=== PATIENT | female | born 1995 | race Caucasian/White ===

== ENCOUNTER 2025-01-14 10:59 | Outpatient (CLI) | payer OTHER, SELFPAY ==
--- OUTSIDE RECORDS SUMMARY | 2025-01-14 12:48 | XMS_ITS | Continuity of Care Document ---
Author Organization [facility] Address [address] [place] [address] Phone Care Team Providers Care Assistant Hairstylist Name Role Phone Angelica Armenta Unavailable Unavailable Allergies, Adverse Reactions, Alerts Substance Reaction Status Criticality No Known Allergies Active No Inform ation Medications Medication Instructions Dosage Effective Dates (start - stop) Status Comments dexamethasone sodium phosphate 10 mg/mL injection solution Administered in the office - No Longer Active Kenalog 40 mg/mL suspension for injection Administered in the office - No Longer Active Procedures Procedure Date Decadron Dexamethasone sodium phos Per 1 Mg Inj Kenalog Triamcinolone acetonide Inj Per 10mg THER/PROPH/DIAG INJ, SC/IM OFFICE/OUTPATIENT VISIT, EST OFFICE/OUTPATIENT VISIT, NEW IMMUNIZATION ADMIN HEP B VACCINE, ADULT, IM OFFICE/OUTPATIENT VISIT, EST IMMUNIZATION ADMIN HEP B VACCINE, ADULT, IM No Charge Advance Directives Directive Yes / No Effective Date File Name No Information Encounters Encounter Description Practice Location Reason(s) For Visit Diagnoses Date Provider Providers Copied on Encounter [facility], [address], [place], [place], [id number], [place] tel:[phone] [facility] No Information Solo Dominguez. [address], [address], [place], [address], [place]. tel:[phone] OFFICE/OUTPAT IENT VISIT, EST [facility], [address] [place] [address], [id number], [place] tel:[phone] [facility] Eyes (chief complaint) Allergic rhinitis 3 Solo Dominguez. [address] [facility] [address], [place], [address], [place]. tel:[phone] Referring Provider: Angelica Gamboa, [address], [place], [address]. tel:[phone] OFFICE/OUTPAT IENT VISIT, NEW [facility], [address] [place] [address], [id number], [place] tel:[phone] [facility] ear pain (chief complaint) AOM of left ear 2 Cecy Pereyra. [address] [place] [address], [id number], [place]. tel:[phone] Referring Provider: Hafsa Gamboa, [address] [place] [address], [address]. tel:[phone] OFFICE/OUTPAT IENT VISIT, EST [facility], [address] [place] [address], [id number], [place] tel:[phone] [facility] No Information 2 Coir Byrd. [address] [place] [address], [id number], [place]. tel:[phone] Referring Provider: Carson Escobar, [address] [place] [address], [id number] . tel:[phone] [facility], [address] [place] [address], [id number], [place] tel:[phone] [facility] No Information 1 Cori Byrd. [address] [place] [address], [id number], [place]. tel:[phone] Referring Provider: Carson Escobar, [address] [place], [address] . tel:[phone] Family History Family Member Type Diagnosis Age At Onset No Information Immunizations Vaccine Date Status Comments Hep B (adult, 3 dose) administered Source : New Immunization Record Hep B (adult, 3 dose) administered Source : New Immunization Record Hep B (adult, 3 dose) administered Source : Other Provider Payers Payer name Insurance type Covered green party ID Authoriza tion(s) [facility] [id number] [facility] [id number] Social History Type Description Quantity Date Captured Comments Alcohol Use Details Unknown Caffeine Use Details Unknown Tobacco Use Status No Information Smoking Status No Information Sex Female Chief Complaint And Reason For Visit No Information Reason For Referral Reason For Referral No Information History Of Present Illness Encounter Date Complaint History Of Prese nt Illness Eyes The symptoms beg an 2 weeks ago and generally lasts 2 Weeks. The symptoms are reported as being moderate. The location is Eyes Bilateral. The client states the symptoms are acute. Pt presents to the office with complaint of itchy eyes. 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 The pt states that she takes a Zrtec pill daily. ear pain Onset: on 2021. The patient states the ear pain is in the left ear. Symptom is aggravated by lying down and sneezing. Associated symptoms include dizziness, drainage (clear), ear popping, ear pressure and fullness in ears. Pertinent negatives include bleeding from ear(s), congestion (nasal), cough, decreased appetite, drainage (purulent), fever, hearing deficit, irritability, loss of balance, malaise, mastoid bone tenderness, nausea, redness/swelling outer ear, ringing in ears, tooth pain and vomiting. Additional information: Pt presents today for left ear pain, clear ear drainage and and pressure since 2AM. She reports for a week she has had dizziness with exercise. Functional Status Date Functional Assessmen t No Information Instructions Date Instruction Additional Infor mation Allergic contact amrit matitis-decadron 10mg/kenalog 40mg given in clinic-Chlortab 4 hours as needed for allergy symptoms-Zyrtec or claritin daily-contact or rtc if symptoms do not improve Related to Allergic rhinitis 1. Amoxicillin 875mg BID X 10 days2. Tylenol or Motrin for pain if needed3. Clear fluids encouragedRTC as needed if symptoms persist or worsen Related to AOM of left ear Assessments Type Assessment Date No Information Patient Care Teams Name Effective Dates (start - stop) Status Members No Information
--- OUTSIDE RECORDS SUMMARY | 2025-01-14 12:48 | XMS_ITS | Encounter Summary ---
Author Organization [facility] Address [address] [place] [address] Care Team Providers Care Technical Publications Manager Name Role Phone Jamey العراقي MD Primary Care Provider [phone] Familia Eaton MD Unavailable Reason for Visit * Reason Onset Date Comments MEDICATION REFILL 09/18/2015 Encounter Details Date Type Department Care Team (Late st Contact Info) Description 09/18/2015 Refill [facility] Pediatrics - Diabetes Mgmt [address] [place] [address] [id number] Raul Polanco APRN-MUCKER OPERATOR [address] [place] [address] MEDICATION REFILL Social History Tobacco Use Types Packs/Day Years Used Date Smoking Tobacco: Never Alcohol Use Standard Drinks/Week Comments No 0 (1 standard drink = 0.6 oz pur e alcohol) Sex and Gender Information Value Date Recorded Sex Assigned at Not on file Gender Identity Not on file Sexual Orientation Not on file documented as of this encounter Plan of Treatment Not on file documented as of this encounter Visit Diagnoses Diagnosis Type 1 diabetes mellitus without complication (HCC)- Primary Type I (juvenile type) diabetes mellitus without mention of complication, not stated as uncontrolled documented in this encounter Care Teams Technical Publications Manager Relationship Specialty Start Date End Date Jamey العراقي MD [address] [place] [address] [id number] PCP - General Pediatric Endocrinology 11/27/12 Familia Eaton MD [address] [place], [place] [id number] Family Medicine Physician Family Medicine 12/03/13 documented as of this encounter
--- OUTSIDE RECORDS SUMMARY | 2025-01-14 12:48 | XMS_ITS | Clinical Summary ---
Author Organization [facility] Address [address] [place] [address] Care Team Providers Care Patient Services Technician Name Role Phone Jamey العراقي MD Primary Care Provider [phone] Familia Eaton MD Unavailable Source Comments [facility],non-owned Affiliates and Associated Physician Practices is amultiple site organization consisting of ambulatory clinics and hospital sitesin [place], [place], [place] and [place]. This disclosure is being madepursuant to the Care Everywhere program and may not contain all information available regarding this patient. Last updated 18.[facility] Allergies No known active allergies Medications * Be aware that medications may not be up to date on this document. Alwaysverify current medications with the patient. Medication Sig Dispensed Refills Start Date End Date Status acetone,urine, (KETOSTIX) stripIndications:Di abetes mellitus type 1 (HCC) 100 Strip 11 11/27/2012 Active insulin lispro (HUMALOG) cartridgeIndication s:Diabetes mellitus type 1 (HCC) 1 unit per 5 grams carbohydrate 5 Each 3 01/31/2015 Active insulin syringe-needle (BD ULTRAFINE II) 31G X 5/16 0.3 ML syringeIndications: Diabetes mellitus type 1 (HCC) For injections 3-6 times daily and as needed. 250 Each 3 01/31/2015 Active insulin pen needle (B-D UF III MINI PEN NEEDLES) 31G X 5 MM needleIndications:D iabetes mellitus type 1 (HCC) 4-6 Each by Injection route once daily. 600 Each 3 01/31/2015 Active glucagon (GLUCAGON EMERGENCY) injectionIndication s:Type 1 diabetes mellitus without complication (HCC) Inject 1 mg into muscle as directed for severe low blood sugar reaction. 2 Kit 1 09/18/2015 Active HUMALOG vial To use in insulin pump as directed. 7 Vial 1 01/29/2016 Active blood glucose (ONETOUCH ULTRA TEST STRIPS) test stripIndications:Ty pe 1 diabetes mellitus without complication (HCC) Use up to 10 strips daily. 90 day supply 900 Strip 3 02/06/2016 Active Insulin Infusion Pump Supplies (INSULIN PUMP SYRINGE RESERVOIR) MISCIndications:Typ e 1 diabetes mellitus without complication (HCC) Use as directed Dispense [place] 2.0 ml cartridge. Use for pump site changes every 2-3 days. 45 Each 2 03/18/2016 Active Insulin Infusion Pump Supplies (INSET INFUSION SET 23 6MM) MISCIndications:Typ e 1 diabetes mellitus without complication (HCC) Use for pump site changes every 2-3 days. 45 Each 3 03/18/2016 Active Active Problems Problem Noted Date Diagnosed Date Thyroiditis, autoimmune 01/31/2015 Overview (01/31/2015): [facility]: (Jan 23, 2015): TSH 1.61 uIU/L (0.5-4.30), thyroid peroxidase antibody 54 IU/mL (< 9.0), thyroglobulin antibody 109 IU/ml (< 1.0). Assessment & Plan (03/15/2016 4:16 PM CDT): Euthyroid. 1. Annual serum TSH. 2. Expectant observation Assessment & Plan (12/16/2015 12:33 PM HAND TIRE TRIMMER): Euthyroid. 1. Expectant observation. 2. Annual serum TSH. Assessment & Plan (09/12/2015 4:25 PM HAND TIRE TRIMMER): 1. Expectant observation. 2. Serum TSH at next office visit. Assessment & Plan (05/27/2015 1:42 PM CDT): 1. Expectant observation. 2. Annual serum TSH Assessment & Plan (01/31/2015 10:00 AM CDT): Euthyroid. 1. Expectant observation. 2. Annual serum TSH. SVT (supraventricular tachycardia) 04/05/2011 Overview (04/07/2012): Pt with episodes of SVT that started occuring over the past 1 year. She reports 3-4 episodes total that self resolve in 5-10 minutes. She presents for scheduled cath. Plan: -Cardiac catheterization with ablation Diabetes mellitus type 1 09/14/2010 Overview (03/15/2016): Dx: 08/16/09 Insulin pump: Zachary Chapa (January 06, 2016) Complications: none Hospitalizations (diabetes related): none. Last RD appointment: May, 2015. Assessment & Plan (03/15/2016 4:18 PM CDT): Fair but improving glycemic control 1. Change duration of insulin action from 3 to 2 hours. 2. Try smaller carb snacks prior to sporting events to lessen post game hyperglycemia. 3. Schedule eye examination this summer 4. Schedule appointment with new adult harvesting contractor in the next 1-3 months. 5. Return appointment as needed. Assessment & Plan (12/16/2015 12:32 PM HAND TIRE TRIMMER): Fair glycemic control; no changes to insulin doses following today's office appointment; starting insulin pump in the next 1-2 months. Mitchimer 23 units at 9 p.m. Novolog/humalo unit per 6 g carb at breakfast; 1 u per 7 g carb at lunch; 1 u per 6 g carb at dinner/snacks; give insulin injections prior to meals/snacks] Mealtime correction: 1 unit Novolog/Humalog for every 30 mg/dL over 150 mg/dL. Blood glucose target range: 70-150 mg/dL Insulin injections given by: self Insulin injection sites: abdominal wall, arm(s), lower leg(s) Avoid giving insulin injections in the abdominal wall - lipohypertrophied areas Consistent carbohydrate counting meal planning (gluten free no) Avoid/minimize between meal snacking without taking insulin. Per the [place] [employer] practice guidelines [Diabetes Care 2015 38 (suppl 1): S1-S94], people with type 1 diabetes mellitus on multiple-dose insulin or insulin pump therapy should perform SMBG prior to meals and snacks, occasionally post-prandial, at bedtime, prior to exercise, when they suspect low blood glucose, after treating low blood glucose until they are normoglycemic, and prior to critical tasks such as driving. Record home blood glucose records in a logbook and bring this logbook to each office visit. Obtain and wear medic alert identification at all times. Schedule appointment for annual eye exam: no; Last eye exam: May 2015 Influenza immunization: not done (at this office visit) Follow-up by telephone (office number: [phone], option #4 or fax number: [phone]) in 2 weeks to review Kenna's interval home blood glucose records and make any additional insulin dose adjustments. Return appointment in 3 months Assessment & Plan (09/12/2015 4:29 PM HAND TIRE TRIMMER): Gisela 21 units at 9 p.m. Novolog/humalo unit per 6 g carb at breakfast/lunch; 1 u per 5 g carb at dinner/snacks; give insulin injections prior to meals/snacks] Mealtime correction: 1 unit Novolog/Humalog for every 30 mg/dL over 150 mg/dL. Blood glucose target range: 70-150 mg/dL Insulin injections given by: self Insulin injection sites: abdominal wall, arm(s), lower leg(s) Avoid giving insulin injections in the abdominal wall - lipohypertrophied areas Consistent carbohydrate counting meal planning (gluten free no) Avoid/minimize between meal snacking without taking insulin. Per the [place] [employer] practice guidelines [Diabetes Care 2015 38 (suppl 1): S1-S94], people with type 1 diabetes mellitus on multiple-dose insulin or insulin pump therapy should perform SMBG prior to meals and snacks, occasionally post-prandial, at bedtime, prior to exercise, when they suspect low blood glucose, after treating low blood glucose until they are normoglycemic, and prior to critical tasks such as driving. Record home blood glucose records in a logbook and bring this logbook to each office visit. Obtain and wear medic alert identification at all times. Schedule appointment for annual eye exam: no; Last eye exam: May 2015 Influenza immunization: not done (at this office visit) Follow-up by telephone (office number: [phone], option #4 or fax number: [phone]) in 2 weeks to review Kenna's interval home blood glucose records and make any additional insulin dose adjustments. Return appointment in 4 months Information given about insulin pump classes in October,. Assessment & Plan (05/27/2015 1:43 PM CDT): Levimer 23 units at 9 p.m. Novolog/humalo unit per 5 g carb at breakfast; 1 u per 4 g carb at lunch;1 u per 4 g carb at supper and1 u per 5 g carb with snacks [give insulin injections prior to meals/snacks] Mealtime correction: 1 unit Novolog/Humalog for every 30 mg/dL over 150 mg/dL. Blood glucose target range: 70-150 mg/dL Insulin injections given by: self Insulin injection sites: abdominal wall, arm(s) Avoid giving insulin injections in the abdominal wall - lipohypertrophied areas Consistent carbohydrate counting meal planning (gluten free no) Avoid/minimize between meal snacking without taking insulin. Per the [place] [employer] practice guidelines [Diabetes Care 2015 38 (suppl 1): S1-S94], people with type 1 diabetes mellitus on multiple-dose insulin or insulin pump therapy should perform SMBG prior to meals and snacks, occasionally post-prandial, at bedtime, prior to exercise, when they suspect low blood glucose, after treating low blood glucose until they are normoglycemic, and prior to critical tasks such as driving. Record home blood glucose records in a logbook and bring this logbook to each office visit. Obtain and wear medic alert identification at all times. Schedule appointment for annual eye exam: no; Last eye exam: May 2015 Influenza immunization: not done (at this office visit) Follow-up by telephone (office number: [phone], option #4 or fax number: [phone]) in 2 weeks to review Kenna's interval home blood glucose records and make any additional insulin dose adjustments. Return appointment in 3 months Assessment & Plan (01/31/2015 10:03 AM CDT): Avoid overtreating low's. Use 15 g carb Levimer 21 units at 9 p.m. Novolog/humalo unit per 6 g carb at meals/snacks; except 1 u per 5 g carb at breakfast [give insulin injections prior to meals/snacks] Mealtime correction: 1 unit Novolog/Humalog for every 30 mg/dL over 150 mg/dL. Blood glucose target range: 70-150 mg/dL Insulin injections given by: self Insulin injection sites: arm(s) Avoid giving insulin injections in the n/a - lipohypertrophied areas Consistent carbohydrate counting meal planning (gluten free no) Avoid/minimize between meal snacking without taking insulin. Per the [place] [employer] practice guidelines [Diabetes Care 2015 38 (suppl 1): S1-S94], people with type 1 diabetes mellitus on multiple-dose insulin or insulin pump therapy should perform SMBG prior to meals and snacks, occasionally post-prandial, at bedtime, prior to exercise, when they suspect low blood glucose, after treating low blood glucose until they are normoglycemic, and prior to critical tasks such as driving. Record home blood glucose records in a logbook and bring this logbook to each office visit. Obtain and wear medic alert identification at all times. Schedule appointment for annual eye exam: no; Last eye exam: March 2014 Influenza immunization: not done (at this office visit) Follow-up by telephone (office number: [phone], option #4 or fax number: [phone]) as needed to review Kenna's interval home blood glucose records and make any additional insulin dose adjustments. Return appointment in 3 months Assessment & Plan (10/25/2014 5:20 PM HAND TIRE TRIMMER): Lantus 21 units at 9 p.m. Novolog/humalo unit per 5 g carb at breakfast and 1 unit per 6 gram carb with lunch, dinner & snacks [give insulin injections prior to meals/snacks] Mealtime correction: 1 unit Novolog/Humalog for every 30 mg/dL over 150 mg/dL. Blood glucose target range: 70-150 mg/dL Insulin injections given by: self Insulin injection sites: abdominal wall, arm(s) Avoid giving insulin injections in the abdominal wall - lipohypertrophied areas Consistent carbohydrate counting meal planning (gluten free no) Avoid/minimize between meal snacking without taking insulin. Self blood glucose monitoring before meals, HS, and prn (record in logbook). Obtain and wear medic alert identification at all times. Schedule appointment for annual eye exam: no; Last eye exam: March 2014 Influenza immunization: not done (at this office visit) Follow-up by telephone (office number: [phone], option #4 or fax number: [phone]) in 1 weeks to review Kenna's interval home blood glucose records and make any additional insulin dose adjustments. Return appointment in 3 months Assessment & Plan (08/06/2014 1:15 PM CDT): Lantus 22 units at 9 p.m. Novolog/humalo unit per 5 g carb at meals/snacks [give insulin injections prior to meals/snacks] Mealtime correction: 1 unit Novolog/Humalog for every 50 mg/dL over 150 mg/dL. Blood glucose target range: 70-150 mg/dL Insulin injections given by: self Insulin injection sites: abdominal wall, arm(s) Avoid giving insulin injections in the abdominal wall - lipohypertrophied areas Consistent carbohydrate counting meal planning (gluten free no) Avoid/minimize between meal snacking without taking insulin. Self blood glucose monitoring before meals, HS, and prn (record in logbook). Obtain and wear medic alert identification at all times. Schedule appointment for annual eye exam: no; Last eye exam: March 2014 Influenza immunization: not done (at this office visit) Follow-up by telephone (office number: [phone], option #4 or fax number: [phone]) in 1 weeks to review Kenna's interval home blood glucose records and make any additional insulin dose adjustments. Return appointment in 3 months Assessment & Plan (03/26/2014 9:58 AM CDT): Lantus 22 units at 9 p.m. Novolog/humalo unit per6 g carb at meals/snacks Mealtime correction: 0.5 unit Novolog/Humalog for every 50 mg/dL over 150 mg/dL Blood glucose target range: 70-150 mg/dL Insulin injections given by: self Insulin injection sites: abdominal wall, arm(s) Avoid giving insulin injections in the abdomen - lipohypertrophied areas Consistent carbohydrate counting meal planning (gluten free no) Self blood glucose monitoring before meals, HS, and prn (record in logbook). Obtain and wear medic alert identification at all times. Schedule appointment for annual eye exam: no; Last eye exam: December 2012 Influenza immunization: n/a (at this office visit) Follow-up by telephone (office number: [phone], option #4 or fax number: [phone]) in 2 weeks to review Kenna's interval home blood glucose records and make any additional insulin dose adjustments. Return appointment in 3 months Assessment & Plan (12/18/2013 3:00 PM CDT): Obtain hemoglobin A1c after today's office visit. I will contact Kenna Painter's mother by telephone (number: [phone]) with the test results after I have received them and make the necessary insulin dose adjustments. Lantus 22 units at 9 p.m. Novolog/humalo unit per 8 g carb at meals/snacks; except 1 u per 5 g carb at breakfast [give insulin injections prior to meals/snacks] Mealtime correction: 1 unit Novolog/Humalog for every 50 mg/dL over 150 mg/dL Blood glucose target range: 70-150 mg/dL Insulin injections given by: self Insulin injection sites: abdominal wall ; arms Avoid giving insulin injections in the abdominal wall - lipohypertrophied areas Consistent carbohydrate counting meal planning (gluten free no) Self blood glucose monitoring before meals, HS, and prn (record in logbook). Obtain and wear medic alert identification at all times. Schedule appointment for annual eye exam: no; Last eye exam: May 2013 Influenza immunization: already (at this office visit) Follow-up by telephone (office number: [phone], option #4 or fax number: [phone]) in 1-2 weeks to review Kenna's interval home blood glucose records and make any additional insulin dose adjustments. Return appointment in 3 months Assessment & Plan (08/23/2013 1:45 PM HAND TIRE TRIMMER): Lantus 23 units at bedtime Novolog/humalo unit per 8 g carb at meals/snacks; except breakfast 1 u per 5 g carb at breakfast [give insulin injections prior to meals/snacks] Mealtime correction: 1 unit Novolog/Humalog for every 50 mg/dL over 150 mg/dL Rotate insulin injection sites; avoid giving injections in the abdominal wall - lipohypertrophied areas Consistent carbohydrate counting meal planning Self blood glucose monitoring before meals, HS, and prn (record in logbook). Obtain and wear medic alert identification at all times. Influenza immunization: done previously (at this office visit) Follow-up by telephone (office number: [phone], option #4 or fax number: [phone]) in 1-2 weeks to review Kenna's interval home blood glucose records and make any additional insulin dose adjustments. Obtain first morning voided urine specimen for urinary microalbumin to creatinine ratio at next appointment. Return appointment in 3 months Immunizations Name Administration Dates Next Due INFLUENZA VACCINE 07/17/2012,08/05/2011 Family History Medical History Relation Name Comments Diabetes Neg Hx Thyroid Disease Neg Hx Social History Tobacco Use Types Packs/Day Years Used Date Smoking Tobacco: Never Alcohol Use Standard Drinks/Week Comments No 0 (1 standard drink = 0.6 oz pur e alcohol) Sex and Gender Information Value Date Recorded Sex Assigned at Not on file Gender Identity Not on file Sexual Orientation Not on file Last Filed Vital Signs Vital Sign Reading Time Taken Comments Blood Pressure 138/82 03/01/2016 1:47 PM CDT Pulse 64 03/01/2016 1:47 PM CDT Temperature 36.6 C (97.8 F) 04/08/2012 8:15 AM CDT Respiratory Rate 24 03/01/2016 1:47 PM CDT Oxygen Saturation 100% 04/30/2013 1:37 PM CDT Inhaled Oxygen Concentration - - Weight 64 kg (141 lb 1.5 oz) 03/01/2016 1:47 PM CDT Height 162.9 cm (5' 4.13 ) 03/01/2016 1:47 PM CD T Body Mass Index 24.12 03/01/2016 1:47 PM CDT Plan of Treatment Health Maintenance Due Date Last Done Comments PAP SMEAR 1997 HIV SCREENING 2012 DIABETES RETINOPATHY SCREENING 12/18/2013 HEPATITIS C SCREENING 08/09/2015 DIABETES-FOOT EXAM WITH MONOFILAMENT 2015 DIABETES-SERUM CREATININE 2015 04/07/2012 DTAP/TDAP/TD VACCINES (1 - Tdap) 2016 HEPATITIS B VACCINE (1 of 3 - 19+ 3-dose series) 2016 DIABETES-HGB A1C 11/11/2016 05/11/2016, , 12/05/2015, Additional history exists COVID-19 VACCINE ( - season) 2024 DEPRESSION SCREENING 10/10/2024 DIABETES - URINE PROTEIN SCREENING 10/10/2024 11/28/2013, 12/30/2009 INFLUENZA VACCINE (Season Ended) 2025 07/17/2012, 08/05/2011 ZOSTER VACCINE (1 of 2) 2047 HIB VACCINE Aged Out No longer eligi ble based on patient's age to complete this topic HPV VACCINE Aged Out No longer eligi ble based on patient's age to complete this topic MENINGOCOCCAL (Group B) VACCINE SHARED DECISION-MAKING Aged Out No longer eligible based on patient's age to complete this topic MENINGOCOCCAL GROUPS A/C/Y/W VACCINE Aged Out No longer eligible based on patient's age to complete this topic PNEUMOCOCCAL VACCINE Aged Out No long er eligible based on patient's age to complete this topic Procedures Procedure Name Priority Date/Time Associated Diagnosis Comments HEMOGLOBIN A1C Routine 05/11/2016 10:20 AM CDT Diabetes mellitus of other type without complication MICROALB/CREAT RATIO URINE RANDOM PANEL 11/28/2013 3:44 PM HAND TIRE TRIMMER BASIC METABOLIC PANEL (CALCIUM TOTAL) STAT 04/07/2012 8:59 AM CDT Diabetes mellitus type 1 SVT (supraventricular tachycardia) from Last 3 Months or Most Recently Relevant to Health Maintenance Results * (ABNORMAL) HEMOGLOBIN A1C - Performed by LAB (05/11/2016 10:20 AM CDT) Hemoglobin A1c 8.9(H) <5.7 % of total Hgb [facility] Comment: According to ADA guidelines, hemoglobin A1c <7.0% represents optimal control in non- diabetic patients. Different metrics may apply to specific patient populations. Standards of Medical Care in Diabetes-2013. Diabetes Care. 2013;36:s11-s66 For the purpose of screening for the presence of diabetes <5.7% Consistent with the absence of diabetes 5.7-6.4% Consistent with increased risk for diabetes (prediabetes) >or=6.5% Consistent with diabetes This assay result is consistent with diabetes mellitus. Currently, no consensus exists for use of hemoglobin A1c for diagnosis of diabetes for children. REPORT COMMENT: FASTING:NO Test Performed at: [facility] [id number] OLIVA HARRIS DO,MPH Whole blood specimen (specimen) BLOOD SPECIMEN WITH EDTA / Unknown 05/11/2016 10:20 AM CDT 05/11/2016 10:20 AM CDT Jamey العراقي MD LAB - CHEMISTRY BIA [facility] Organization Address City/State/[facility] Co de Phone Number [facility] [address] [place] [phone] * MICROALB/CREAT RATIO URINE RANDOM PANEL (11/28/2013 3:44 PM HAND TIRE TRIMMER) Creatinine Urine 108 20 - 320 mg/dL [facility] Comment: Test Performed at: [facility] [id number] OLIVA HARRIS DO,MPH Microalbumin Urine 0.2 mg/dL [facility] Comment: Reference Range Not established Test Performed at: [facility] [id number] OLIVA HARRIS DO,MPH Microalbumin/Creat inine Ratio 2 <30 mcg/mg creat [facility] Comment: The ADA defines abnormalities in albumin excretion as follows: Category Result (mcg/mg creatinine) Normal <30 Microalbuminuria 30-299 Clinical albuminuria > OR = 300 The ADA recommends that at least two of three specimens collected within a 3-6 month period be abnormal before considering a patient to be within a diagnostic category. 11/28/2013 3:44 PM HAND TIRE TRIMMER 11/28/2013 3:44 PM HAND TIRE TRIMMER Jamey العراقي MD LAB - URINE CHEMISTR Y ORDERABLES [facility] [address] [place] [address] * (ABNORMAL) BASIC METABOLIC PANEL (CALCIUM TOTAL) (04/07/2012 8:59 AM T) Sodium 138 136 - 145 mmol/L 04/07/2012 10:04 AM [facility] Potassium 4.1 3.5 - 5.1 mmol/L 04/07/2012 10:04 AM [facility] Chloride 107 98 - 107 mmol/L 04/07/2012 10:04 AM [facility] CO2 20 20 - 28 mmol/L 04/07/2012 10:04 AM [facility] Calcium 8.62(L) 8.92 - 10.32 mg/dL 04/07/2012 10:04 AM [facility] Anion Gap 11 5 - 20 mmol/L 04/07/2012 10:04 AM [facility] BUN 16.2 6.1 - 21.0 mg/dL 04/07/2012 10:04 AM [facility] Creatinine 0.75 0.62 - 1.00 mg/dL 04/07/2012 10:04 AM [facility] eGFR by MDRD ml/min/1. 73m2 04/07/2012 10:04 AM [facility] Comment:eGFR calculations ar e not performed for children under 18 years old. eGFR by MDRD ml/min/1. 73m2 04/07/2012 10:04 AM [facility] Comment:eGFR calculations ar e not performed for children under 18 years old. Glucose 205(H) 70 - 105 mg/dL 04/07/2012 10:04 AM [facility] Blood specimen (specimen) BLOOD SPECIMEN / Unknown 04/07/2012 8:59 AM CDT 04/07/2012 9:14 AM T Richard Momin MD LAB - CHEMISTRY BIA [facility] [address] [place] [address] from Last 3 Months or Most Recently Relevant to Health Maintenance Care Teams Patient Services Technician Relationship Specialty Start Date End Date Jamey العراقي MD [address] [place] [address] PCP - General Pediatric Endocrinology 11/27/12 Familia Eaton MD [address] [place] [id number] Family Medicine Physician Family Medicine 12/03/13
--- OUTSIDE RECORDS SUMMARY | 2025-01-14 12:48 | XMS_ITS | Clinical Summary ---
Author Organization [facility] Address [address] [place] [address] Care Team Providers Care Barber Instructor Name Role Phone Familia Eaton MD Primary Care Provider [phone] Yovanny Flynn MD Unavailable [phone] Martina De La rCuz MD Unavailable [phone] Mariangel Ga NP Unavailable [phone] Allergies No known active allergies Medications cyanocobalamin/f olic acid (VITAMIN A40-PRIBV ACID) 500-400 mcg tabletIndication s:Vitamin B 12 deficiency One pill 2 times per week as directed 30 tablet 6 09/29/20 18 Active cetirizine (ZyrTEC) 10 mg chewable tablet Take 1 tablet (10 mg total) by mouth daily Active biotin 5,000 mcg tablet,disintegr ating Active glucagon (Baqsimi) 3 mg/actuation spray,non-aeroso l Use as directed for severe low blood sugar 1 each 1 08/30/20 22 Active OneTouch Verio test strips stripIndications :Type 1 diabetes mellitus without complication (HCC) USE TO CHECK BLOOD SUGAR 3 TIMES A DAY 300 strip 3 10/21/19 24 Active blood-glucose transmitter (Dexcom G6 Transmitter) device Use with Dexcom G6 system to continuously monitor blood glucose. Change every 3 months 1 each 3 10/21/19 24 Active blood-glucose sensor device Use with [employer] G6 system to continuously monitor blood glucose. Change every 10 days. 9 each 3 10/21/19 24 Active lisinopriL (PRINIVIL,ZESTRI L) 2.5 mg tablet 10/24/19 24 Active insulin glargine (BASAGLAR) 100 unit/mL (3 mL) pen for injectionIndicat ions:Type 1 diabetes mellitus without complication (HCC) Inject 16 units once daily in case of pump failure 15 mL 11/17/19 24 Active insulin aspart (NovoLOG) 100 unit/mL vial for injectionIndicat ions:Type 1 diabetes mellitus without complication (HCC) USE DIRECTED SUBCUTANEOUSLY IN INSULIN PUMP-TOTAL DAILY DOSE OF 75UNITS 70 mL 3 01/06/20 24 Active Active Problems Problem Noted Date Diagnosed Date Autoimmune polyendocrine syndrome, type 2 2022 Overview (04/18/2023): Type 1 DM and B12 deficiency/atrophic gastritis Assessment & Plan (04/20/2023 4:17 PM CDT): Ongoing surveillance Elevated blood pressure reading 03/15/2022 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 We will recheck this and plan for a repeat EGD to verify that her mucosa has not changed to reflect atrophic gastritis. We will also recheck her gastrin level and parietal cell antibody level Vitamin B 12 deficiency 09/29/2018 Overview (09/10/2020): We have documented low B12 on her in the past with a normal gastrin suggesting this is likely dietary. Subsequent biopsy of the stomach March 24, 2020 was essentially negative. She has been previously documented to have positive anti parietal cell antibodies October 11, 2019 anti parietal cell antibody 53.4, intrinsic factor antibody was negative Assessment & Plan (04/20/2023 4:16 PM CDT): On long-term supplement Assessment & Plan (02/05/2021 7:12 PM CDT): The patient's B12 is elevated but there is seldom any issues with toxicity for high levels and less than daily dosing is harder for her to remember. She likely can tolerate daily dosing of B12 or she can try using a pillbox to better remember the infrequent dosing. Assessment & Plan (09/04/2019 9:07 AM TELEVISION WRITER): The patient has a low normal B12 level and was started on B12 supplementation. Will repeat labs for intrinsic factor, gastrin, and parietal cell antibodies for further evaluation. 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 Keep a copy of current settings and store in a safe place. The automatic centrifugal station operator may need to be contacted to obtain a replacement pump. Once you resume the pump set a temp basal of 0% until you would be due for your next dose of basal insulin. Assessment & Plan (04/20/2023 4:14 PM CDT): She is adept in using and managing the insulin pump. We discussed a pump backup plan in detail. Type 1 diabetes mellitus without complication Overview (09/19/2018): Ciara Painter Is a 23 y.o. female with Type I diabetes. Diabetes was diagnosed at age [age].She has hypoglycemic issues and is on pump therapy. Assessment & Plan (04/20/2023 4:32 PM CDT): Glucoses within a good margin of control and safety. Doing well with the insulin pump. Needs labs. Assessment & Plan (09/04/2019 9:06 AM TELEVISION WRITER): The patient has type 1 diabetes, currently using a Medtronic 670 G insulin pump and sensor. Hemoglobin A1c improved to 7.3% at today's visit of September 04, 2019. Her sensor download does reveal some post meal hyperglycemic excursions. She will work on bolusing 10-15 minutes prior to the meal. Will continue same insulin pump settings at this time. Her eye exam is up-to-date. Will order routine fasting labs to be done at her convenience. She will return over spring for follow-up. Assessment & Plan (03/29/2019 12:39 PM CDT): The patient has type 1 diabetes, currently using Humalog per Medtronic 670 G insulin pump and sensor. Review of her download information indicates that she is in range greater than 70% of the time. She does have some post meal glucose excursions. She believes that these are due to timing of her boluses. She feels that the amount of insulin that she is delivering is appropriate. Her hemoglobin A1c at today's visit of March 29, 2019 was 7.6%. She will be seeing the barrel burner today. Recommend she continue the same insulin pump settings at this time. 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 She will follow-up with Dr. Wallis or myself over and will call sooner with any concerns. Assessment & Plan (03/27/2018 2:09 PM CDT): She has had some difficulties with the sensor from [employer] not seeing her pump at night. The company suggested that the location of the sensor was problemetic on posterior hip. I will have her see our educator to review some of the tricks necessary to make this system work well. We will be adjusting her basals downward due to the auto basal with the suspend feature averaging about 19 units and we will be adjusting the carbohydrate ratio of from 1 unit for every 10 g or so now down to be 1 unit for 8 g around the clock. She will work to limit carbohydrate intake we will work to get her into auto mode as soon as possible. BACK UP REVIEWED Please keep a copy of your current pump settings in a safe place. The patient is to carry a needle and syringe at all times in a case of pump or site failure. If sugars are increased without clear explanation, please assess the pump and given an injection with needle and syringe. If pump is usable, change out the site, insulin and cartridge. If the pump is not usable, the basal will be need to be replaced with either NPH every 8 hr or long-acting insulin such as Lantus Q 24 hr. The meal dosages will be covered with rapid acting insulin based on the carb ratio found on the pump utilizing needle and syringe. The manufacture will need to be contacted to obtain a replacement pump. Once the pump has been returned, reset the new pump up on prior settings. The pump can then be resumed, taking into account the time action profile for the background insulin. Thyroiditis, autoimmune 01/31/2015 Overview (09/29/2018): Overview: [facility]: (Jan 23, 2015): TSH 1.61 uIU/L (0.5-4.30), thyroid peroxidase antibody 54 IU/mL (< 9.0), thyroglobulin antibody 109 IU/ml (< 1.0). Last Assessment & Plan: Euthyroid. 1. Annual serum TSH. 2. Expectant observation Assessment & Plan (09/04/2019 9:05 AM TELEVISION WRITER): The patient has had abnormal thyroid function tests consistent with thyroiditis, and positive TPO. She appears clinically euthyroid. Will repeat free T4, TSH for further evaluation. Assessment & Plan (03/29/2019 12:41 PM CDT): Labs in September 2018 revealed a TSH that was suppressed in 09-26. Repeat labs in October 2018 showed a TPO of 331, low free T4-3 of 1.9, normal free T4 of 1.1, and normal TSH of 2.6. She appears euthyroid on physical exam. Discussed that due to her positive thyroid antibodies she is at higher risk of developing hypothyroidism. Will closely monitor. Will repeat thyroid function test at her next visit. Reviewed symptoms of hypothyroidism and advised to call if she notices any symptoms sooner. SVT (supraventricular tachycardia) 04/05/2011 Overview (04/07/2023): Pt with episodes of SVT that started occuring over the past 1 year. She reports 3-4 episodes total that self resolve in 5-10 minutes. She presents for scheduled cath. Plan: -Cardiac catheterization with ablation Resolved Problems Problem Noted Date Diagnosed Date Resolved Date Absolute anemia 03/13/2020 03/18/2022 Overview (03/13/2020): Added automatically from request for surgery [id number] Assessment & Plan (02/05/2021 7:13 PM CDT): The patient complains of fatigue. Her B12 is robust but she was iron deficient. We will recheck her levels of iron and if still low would recommend that she try ferrous gluconate. She can increase her MiraLax to compensate for any constipation caused by this. Encounters Date Type Department Care Team Description 5 Results Follow-Up [facility] Gastroenterology [address] [place] [address] Medicine [facility] [place] [address] [place] [address] Isela Murray MD PhD 5 Orders Only [facility] Gastroenterology [address] [place] [address] [place] [address] [place] [address] Isela Murray MD PhD Atrophic gastritis without hemorrhage (Primary Dx) 5 Results Follow-Up [facility] Gastroenterology [address] [place] [address] [place] [address] [place] [address] Isela Murray MD PhD 5 10:24 AM TELEVISION WRITER Anesthesia Event [facility] Dig[facility]ive Disease [address] [place] [phone] Rodrigo Mauricio MD Zueck, Jason M., CONSULAR OFFICER 5 10:00 AM TELEVISION WRITER - 5 10:30 AM TELEVISION WRITER Surgery [facility] [address] [place] [address] [place] [phone] Isela Murray MD PhD ESOPHAGOGASTRODUODENOSCOPY BIOPSY 5 9:01 AM TELEVISION WRITER - 5 11:45 AM TELEVISION WRITER Hospital Encounter [facility] [address] [facility] [address] [place] [phone] Isela Murray MD PhD Atrophic gastritis without hemorrhage Discharge Disposition: Discharge to home or self care 5 Telephone [facility] Specialty Services [address] [place] [phone] Letitia Holder RN GI PROCEDURE 3 DAY PRE CALL 5 Telephone [facility] Specialty Services [address] [place] [phone] Letitia Holder RN GI PROCEDURE 7 DAY PRE CALL 5 10:20 AM TELEVISION WRITER Office Visit [facility] Endocrinology Metabolism and Lipid [address] [facility] 13th [place] [address] [place] [address] Maryann Malagon MD Type 1 diabetes mellitus without complication (HCC) (Primary Dx); Insulin pump in place; Vitamin B 12 deficiency; Thyroiditis, autoimmune 5 Orders Only [facility] Endocrinology Metabolism and Lipid [address] [facility] 13th [place] [address] [place] [address] Shea Adams, Will Saxena RN Type 1 diabetes mellitus without complication (HCC) (Primary Dx) from Last 3 Months Surgical History Surgery Date Site/Laterality Comments TONSILLECTOMY UPPER GASTROINTESTINAL ENDOSCOPY ABLATION Medical History Medical History Date Comments SVT (supraventricular tachycardia) s/p ablation 2011 DM type 1 (diabetes mellitus, type 1) (HCC) 2008 insulin pump Vitamin B 12 deficiency Gastritis and duodenitis Hypertension Family History Medical History Relation Name Comments Diabetes type II Other 1 Type 2 Diab etes Mellitus - (Added by TW Conv) Diabetes type I Other 2 Type 1 Diabe jaren Mellitus - (Added by TW Conv) Heart disease Other 3 Heart Disease - (Added by TW Conv) Cancer Other 4 Cancer - (Added by TW Conv) Stroke Other 5 Stroke Syndrome - (Added by TW Conv) Thyroid disease Other 6 Thyroid Diso rder - (Added by TW Conv) Hypertension Other 7 Hypertension - (Added by TW Conv) Ovarian cancer Paternal Grandmother Cance r, ovarian; Relation Name Status Comments Other 1 Other 2 Other 3 Other 4 Other 5 Other 6 Other 7 Paternal Grandmother Social History Tobacco Use Types Packs/Day Years Used Date Smoking Tobacco: Never Smokeless Tobacco: Never Tobacco Cessation:Counseling Given: Not Answered Alcohol Use Standard Drinks/Week Comments Yes 0 (1 standard drink = 0.6 oz pur e alcohol) rarely AUDIT-C Answer Date Recorded Q1: How often do you have a drink containing alc ohol? Monthly or less 03/29/2022 Average Number of Drinks Not on file 022 Frequency of Binge Drinking Not on file 03/11 Personal Safety Answer Date Recorded Have you ever been in or are you currently in a harmful physical or emotional relationship or is someone making you feel afraid or unsafe? Denies 12/11/2024 Comments No Sex and Gender Information Value Date Recorded Sex Assigned at Not on file Legal Sex Female 4:19 AM TELEVISION WRITER Gender Identity Female 03/26/2019 10:07 AM CDT Sexual Orientation Straight 03/26/2019 10 :07 AM CDT Obstetrics History Last Filed Vital Signs Vital Sign Reading Time Taken Comments Blood Pressure 110/73 12/11/2024 11:26 AM TELEVISION WRITER Pulse 55 12/11/2024 11:26 AM TELEVISION WRITER Temperature 36 C (96.8 F) 12/11/2024 10:56 AM TELEVISION WRITER Respiratory Rate 21 12/11/2024 11:26 AM TELEVISION WRITER Oxygen Saturation 100% 12/11/2024 11:26 AM TELEVISION WRITER Inhaled Oxygen Concentration - - Weight 67.1 kg (148 lb) 12/11/2024 10:10 AM TELEVISION WRITER Height 162.6 cm (5' 4 ) 12/11/2024 10:10 AM TELEVISION WRITER Body Mass Index 25.4 12/11/2024 10:10 AM TELEVISION WRITER Plan of Treatment Health Maintenance Due Date Last Done Comments Cervical Cancer Screening 1997 Depression Screening 1997 Hepatitis C Screening 1997 Dilated Eye Exam 2007 Varicella Vaccines (1 of 2 - 13+ 2-dose series) 2010 Hepatitis B Screening 2015 Regular Well Visit/Exam 18-64 2015 Pneumococcal vaccine <65 (1 of 2 - PCV) 2016 Albumin Creatinine Ratio, Urine 05/14/2025 05/14/2024, 04/19/2023, 03/15/2022, Additional history exists Lipid Panel 05/14/2025 05/14/2024, 04/09, 03/15/2022, Additional history exists TSH Level 05/14/2025 05/14/2024, 04/09, 03/15/2022, Additional history exists eGFR 05/14/2025 05/14/2024, 04/09, 03/15/2022, Additional history exists Foot Exam 05/21/2025 05/21/2024 Hemoglobin A1C 05/22/2025 11/22/2024, 08/02/2024, 11/16/2023, Additional history exists Influenza Vaccine (Season Ended) 2025 08/14/2019, 07/13/2018, 06/10/2017, Additional history exists DTaP/Tdap/Td Vaccine (2 - Td or Tdap) 07/06/2029 07/06/2019 HPV Vaccines Aged Out No longer eligi ble based on patient's age to complete this topic Procedures Procedure Name Priority Date/Time Associated Diagnosis Comments PARIETAL CELL AB$W/REFL TITER Routine 9:36 AM CDT Atrophic gastritis without hemorrhage SURGICAL PATHOLOGY Routine 12/11/2024 10:40 AM TELEVISION WRITER Atrophic gastritis without hemorrhage EGD 12/11/2024 10:29 AM TELEVISION WRITER ESOPHAGOGASTRODUODENOSCOPY BIOPSY 12/11/2024 10:24 AM TELEVISION WRITER Atrophic gastritis without hemorrhage POCT GLUCOSE DEVICE Routine 12/11/2024 10:21 AM TELEVISION WRITER POCT HCG, URINE Routine 12/11/2024 10:08 AM TELEVISION WRITER HEMOGLOBIN A1C Routine 11/22/2024 12:38 PM TELEVISION WRITER Type 1 diabetes mellitus without complication (HCC) COMPREHENSIVE METABOLIC PANEL Routine 7:26 AM CDT Type 1 diabetes mellitus without complication (HCC) Vitamin B 12 deficiency Thyroiditis, autoimmune LIPID PANEL Routine 05/14/2024 7:26 AM CDT Type 1 diabetes mellitus without complication (HCC) Vitamin B 12 deficiency Thyroiditis, autoimmune ALBUMIN CREATININE RATIO, URINE Routine 05/14/2024 7:26 AM CDT Type 1 diabetes mellitus without complication (HCC) Vitamin B 12 deficiency Thyroiditis, autoimmune THYROID FUNCTION CASCADE Routine 024 7:26 AM CDT Type 1 diabetes mellitus without complication (HCC) Vitamin B 12 deficiency Thyroiditis, autoimmune from Last 3 Months or Most Recently Relevant to Health Maintenance Results * Parietal cell Ab w/reflex titer (12/31/2024 9:36 AM CDT) Parietal cell ab screen NEGATIVE NEGATIVE [facility] Blood 12/31/2024 9:36 AM CDT 12/31/2024 9:36 AM CDT Narrative [facility] - 01/03/2025 11:16 AM CDT FASTING:NO FASTING: NO us Isela Murray MD PhD LAB BLOOD ORDERABLES May l Result Performing Organization Address City/State/[facility] Co de Phone Number [facility] [address] [place] [address] * Surgical pathology (12/11/2024 10:40 AM TELEVISION WRITER) Tissue specimen (specimen) (Gastric/Stomach biopsy) 12/11/2024 10:40 AM TELEVISION WRITER Tissue specimen (specimen) (Polyp(s), colon/colorectal, esophageal, gastric) 12/11/2024 10:43 AM TELEVISION WRITER Tissue specimen (specimen) (Gastric/Stomach biopsy) 12/11/2024 10:45 AM TELEVISION WRITER Narrative PATHOLOGY [facility] - 12/13/2024 5:53 PM TELEVISION WRITER EPIC results best viewed via link to PDF [facility] [place] [address] Note to Patients: This report may contain a detailed description of human tissue sent by a health care provider to the laboratory for pathologic evaluation. The content of this report is essential for diagnosis and may provide important critical findings. This information may be unfamiliar to patients to review without a medical professional present. It is advised that the patient review this report in the presence of a health care provider who can answer questions and explain the details. SURGICAL PATHOLOGY REPORT FINAL Patient Name: CIARA PAINTER Gender: F : 1995 (Age: 29) Address: [address] [place] [phone] [facility] #: [id number] Taken:12/11/2024 Received:12/11/2024 Reported: 12/13/2024 Patient Type: [facility] Service: Gastro Location: Physician(s): Christal Mckinney MD Diagnosis: A. Stomach, antrum and incisura, biopsy: - Antral and gastric transitional mucosa with chronic inflammation. - Negative for intestinal metaplasia or dysplasia. B. Stomach, body fundus, polyp, biopsy: - Polypoid oxyntic mucosa with chronic inflammation. - Negative for intestinal metaplasia, dysplasia, or neoplasm. C. Stomach, body and fundus, biopsy: - Oxyntic mucosa with chronic inflammation. - Negative for intestinal metaplasia or dysplasia. - No evidence of loss of oxyntic gland volume; no evidence neuroendocrine cell hyperplasia (see comment). - Helicobacter pylori immunostain is negative. [facility]/12/12/2024 11:08 By this signature, I attest that the above diagnosis is based upon my personal examination of the slides(and/or other material indicated in the diagnosis). Miki Silveira MD, PHD Report Electronically Reviewed and Signed Out By Miki Silveira MD, PHD 12/13/2024 17:53:44 Diagnosis Comment The patient's elevated serum anti-parietal cell antibody (53.4, collected on 10/11/2019), negative intrinsic factor blocking antibody (collected on 10/11/2019), and normal serum gastrin level (most recently collected on 04/19/2023) are noted. Part C: Immunostains with synaptophysin and chromogranin show scattered neuroendocrine cells. There is no definitive evidence of neuroendocrine cell hyperplasia. Part B: Multiple additional deeper tissue sections were examined. Margo Garcia M.D. History: The patient is a 29-year-old woman presenting with atrophic gastritis without hemorrhage. Operative procedure: Upper endoscopy with biopsy. Specimen(s) Received: A: Cold forceps gastric-antrum and incisura biopsies B: Cold forceps gastric body-fundus polyp C: Cold forceps body and fundus biopsies Gross Description: Received in three formalin jars labeled with the patient's identifiers. A. Labeled gastric antrum and incisura and consists of multiple evangelista-pink fragment(s) of soft tissue measuring 1.8 x 0.6 x 0.2 cm in aggregate. Labeled A1. Jar 0. B. Labeled gastric body fundus polyp and consists of two evangelista fragment(s) of soft tissue measuring 0.4 and 0.6 cm each in greatest dimension. Labeled B1. Jar 0. C. Labeled body and fundus and consists of multiple evangelista-brown fragment(s) of soft tissue measuring 1.3 x 0.7 x 0.2 cm in aggregate. Labeled C1. Jar 0. sxst/12/11/2024 13:31 PA(s): Esther Mcneill By this signature, I attest that the above diagnosis is based upon my personal examination of the slides(and/or other material). Addenda/Procedures The performance characteristics of some immunohistochemical stains, fluorescence in-situ hybridization tests and immunophenotyping by flow cytometry cited in this report (if any) were determined by the Surgical Pathology and Flow Cytometry Departments at [facility] as part of an ongoing quality control engineer program and in compliance with federally mandated regulations drawn from the Clinical Laboratory Improvement Act of 1988 (CLIA '88). Some of these tests rely on the use of analyte specific reagents and are subject to specific labeling requirements by the US Food and Drug Administration. Such diagnostic tests may only be performed in a facility that is certified by the Department of Health and Human Services as a high complexity laboratory under CLIA '88. The FDA has determined that such clearance or approval is not necessary. This test is used for clinical purposes. It should not be regarded as investigational or for research. Nevertheless, federal rules concerning the medical use of analyte specific reagents require that the following disclaimer be attached to the report: This test was developed and its performance characteristics determined by the Surgical Pathology and Flow Cytometry Departments of [facility]. It has not been cleared or approved by the U. S. Food and Drug Administration. IMAGES AND SCANNED DOCUMENTS, IF INCLUDED, ONLY VIEWABLE IN PDF VERSION OF REPORT us Isela Murray MD PhD LAB PATHOLOGY ORDERABLES Final Result PATHOLOGY [facility] 3rd Floor [place], [place] [phone] * EGD (12/11/2024 10:29 AM TELEVISION WRITER) Anatomical Region Laterality Modality Other Narrative Procedure Note Isela Murray MD PhD - 12/11/2024 10:29 AM CST [facility] ENDOSCOPY [facility] Patient Name: Ciara Painter Procedure Date: 12/11/2024 10:29 AM Date of : 1995 Admit Type: Outpatient Age: 29 Gender: Female Attending MD: Isela Murray MD,PHD Room: [facility] ENDOSCOPY ROOM 3 Note Status: Finalized Procedure: Upper GI endoscopy Indications: Suspected atrophic gastritis Referring MD: Familia Eaton M.D. Providers: Isela Murray MD, PHD, Ovi Colin M.D. Medicines: Monitored Anesthesia Care Complications: No immediate complications. Estimated Blood Loss: Estimated blood loss: none. Procedure: Pre-Anesthesia Assessment: - Immediately prior to administration ofmedications, the patient was re-assessed for adequacy to receive sedatives. The benefits, risks, and alternatives to theprocedure and sedation were discussed and informed consentwas obtained. The scope was passed under direct vision. The GIF [id number] endoscope was introducedthrough the mouth, and advanced to the second part of duodenum. The upper GI endoscopy was accomplished without difficulty. The patient tolerated the procedure well. Findings: The Z-line was regular and was found 36 cm from the incisors. Normal mucosa was found in the entire stomach. The stomach wasexamined carefully with both WLHD and NBI multiple times. Biopsies were taken with a cold forceps for histology. A few small sessile polyps were found in the gastric fundus and inthe gastric body. Biopsies were taken with a cold forceps forhistology. The examined duodenum was normal. Impression: - Z-line regular, 36 cm from the incisors. - Normal mucosa was found in the entire stomach. Biopsied. - A few gastric polyps. Biopsied. - Normal examined duodenum. Recommendation: - Await pathology results. - Return to GI clinic PRN. Attending Participation: I was present and participated during the entire procedure, including non-dean portions. Electronically signed by Isela Murray MD. Isela Murray MD, PHD 12/11/2024 10:54:55 AM Number of Addenda: 0 Note Initiated On: 12/11/2024 10:29 AM us Isela Murray MD PhD ENDOSCOPY PROCEDURES May l Result * POCT glucose (12/11/2024 10:21 AM TELEVISION WRITER) Glucose, POC 124 70 - 199 mg/dL Blood 12/11/2024 10:2 1 AM TELEVISION WRITER 12/11/2024 10:21 AM TELEVISION WRITER Result [facility] Isela Murray MD PhD LAB POCT ORDERABLES - DEV ICE Final Result [facility] [place] [address] * POCT hCG, urine (12/11/2024 10:08 AM TELEVISION WRITER) HCG, ur, POC Negative Negative Lot Number \[id number]\ QC Backgroud Clear Acceptable QC Control Line Acceptable Urine 12/11/2024 10:0 8 AM TELEVISION WRITER Result [facility] Isela Murray MD PhD POINT OF CARE TEST ORDERA BLES Final Result * (ABNORMAL) Hemoglobin A1c (11/22/2024 12:38 PM TELEVISION WRITER) Pathologist [facility] [place] Hgb A1C 6.7(H) <5.7 % of total Hgb [facility] Comment: For someone without known diabetes, a hemoglobin A1c value of 6.5% or greater indicates that they may have diabetes and this should be confirmed with a follow-up test. For someone with known diabetes, a value <7% indicates that their diabetes is well controlled and a value greater than or equal to 7% indicates suboptimal control. A1c targets should be individualized based on duration of diabetes, age, comorbid conditions, and other considerations. Currently, no consensus exists regarding use of hemoglobin A1c for diagnosis of diabetes for children. Blood 11/22/2024 12:3 8 PM TELEVISION WRITER 11/22/2024 12:38 PM TELEVISION WRITER Narrative [facility] - 11/22/2024 10:19 PM TELEVISION WRITER FASTING:NO FASTING: NO Result [facility] Maryann Malagon MD LAB BLOOD ORDERABLES Final Result [facility] [address] [place] [address] * Thyroid Function [place] (05/14/2024 7:26 AM CDT) TSH 4.28 mIU/L [facility] Comment: Reference Range > or = 20 Years 0.40-4.50 Ranges First trimester 0.26-2.66 Second trimester 0.55-2.73 Third trimester 0.43-2.91 Blood 05/14/2024 7:26 AM CDT 05/14/2024 7:26 AM CDT Narrative [facility] - 05/16/2024 1:31 AM CDT FASTING:YES FASTING: YES Maryann Malagon MD LAB BLOOD ORDERABLES Final Result Performing Organization Address City/[facility]/ZIP Co de Phone Number [facility] [address] [place] [address] * Albumin Creatinine Ratio, Urine (05/14/2024 7:26 AM CDT) Pathologist [facility] [place] Creatinine, ur 81 20 - 275 mg/dL [facility] Microalbumin, ur <0.2 See Note: mg/dL [facility] Comment: Reference Range: Reference Range Not established Microalbumin/creat ratio NOTE <30 mg/g creat [facility] Comment: NOTE: The urine albumin value is less than 0.2 mg/dL therefore we are unable to calculate excretion and/or creatinine ratio. The ADA defines abnormalities in albumin excretion as follows: Albuminuria Category Result (mg/g creatinine) Normal to Mildly increased <30 Moderately increased 30-299 Severely increased > OR = 300 The ADA recommends that at least two of three specimens collected within a 3-6 month period be abnormal before considering a patient to be within a diagnostic category. Urine 05/14/2024 7:26 AM CDT 05/14/2024 7:26 AM CDT Narrative [facility] - 05/16/2024 1:31 AM CDT FASTING:YES FASTING: YES Maryann Malagon MD LAB URINE ORDERABLES Final Result [facility] [address] [facility] [address] * Lipid panel (05/14/2024 7:26 AM CDT) Cholesterol 174 <200 mg/dL [facility] HDL 85 > OR = 50 mg/dL [facility] Triglycerides 42 <150 mg/dL [facility] LDL 77 mg/dL (calc) [facility] Comment: Reference range: <100 Desirable range <100 mg/dL for primary prevention; <70 mg/dL for patients with CHD or diabetic patients with > or = 2 CHD risk factors. LDL-C is now calculated using the Campbell calculation, which is a validated novel method providing better accuracy than the Friedewald equation in the estimation of LDL-C. Madhu SS et al. REINA. 2013;310(19): 7532-3407 (http://education.Ofercity/faq/XFZ306) Chol/HDL ratio 2.0 <5.0 (calc) [facility] Non-HDL, (LDL+VLDL) 89 <130 mg/dL (calc) [facility] Comment: For patients with diabetes plus 1 major ASCVD risk factor, treating to a non-HDL-C goal of <100 mg/dL (LDL-C of <70 mg/dL) is considered a therapeutic option. Blood 05/14/2024 7:26 AM CDT 05/14/2024 7:26 AM CDT Narrative [facility] - 05/16/2024 1:31 AM CDT FASTING:YES FASTING: YES us Maryann Malagon MD LAB BLOOD ORDERABLES Final Result [facility] [address] [place] [address] * (ABNORMAL) Comprehensive metabolic panel (05/14/2024 7:26 AM CDT) Glucose 112(H) 65 - 99 mg/dL [facility] Comment: Fasting reference interval For someone without known diabetes, a glucose value between 100 and 125 mg/dL is consistent with prediabetes and should be confirmed with a follow-up test. BUN 15 7 - 25 mg/dL [facility] Creatinine 0.84 0.50 - 0.96 mg/dL [facility] eGFR 98 > OR = 60 mL/min/1.7 3m2 [facility] BUN/creat ratio SEE NOTE: 6 - 22 (calc) [facility] Comment: Not Reported: BUN and Creatinine are within reference range. Sodium 138 135 - 146 mmol/L [facility] Potassium, pl 4.1 3.5 - 5.3 mmol/L [facility] Chloride 105 98 - 110 mmol/L [facility] CO2 28 20 - 32 mmol/L [facility] Calcium 9.0 8.6 - 10.2 mg/dL [facility] Protein, sr 6.2 6.1 - 8.1 g/dL [facility] Albumin 4.1 3.6 - 5.1 g/dL [facility] GLOBULIN 2.1 1.9 - 3.7 g/dL (calc) [facility] Alb/glob ratio 2.0 1.0 - 2.5 (calc) [facility] Bilirubin, total 0.4 0.2 - 1.2 mg/dL [facility] Alk phos 64 31 - 125 U/L [facility] AST 17 10 - 30 U/L [facility] ALT (SGPT) 10 6 - 29 U/L [facility] Blood 05/14/2024 7:26 AM CDT 05/14/2024 7:26 AM CDT Narrative [facility] - 05/16/2024 1:31 AM CDT FASTING:YES FASTING: YES us Maryann Malagon MD LAB BLOOD ORDERABLES Final Result [facility] [address] [phone] from Last 3 Months or Most Recently Relevant to Health Maintenance Insurance [facility] PPO [facility] ACCESS CHOICE [facility] PPO [facility] HMO/PPO Address: [address] [place] [address] [facility] PPO Advance Directives For more information, please contact: [phone] * Full Code (Latest Code Status on File) Date Activated Date Inactivated Comments 03/29/2022 7:51 AM 03/29/2022 1:59 PM * Full Code Date Activated Date Inactivated Comments 03/24/2020 7:04 AM 03/24/2020 1:22 PM Care Teams Barber Instructor Relationship Specialty Start Date End Date Familia Eaton MD [address] [place] [place] [address] PCP - General 04/08/17 Yovanny Flynn MD [address] [place] [address] 04/08/17 Martina De La Cruz MD [address] [place] [address] Referring Physician Endocrinology Diabetes & Metabolism 04/18/23 Mariangel Ga NP [address] [place] [address] Nurse Practitioner Nurse Practitioner 04/18/23
--- OUTSIDE RECORDS SUMMARY | 2025-01-14 12:48 | XMS_ITS | Encounter Summary ---
Author Organization [facility] Address [address] [place] [address] Phone Care Team Providers Care Dump Worker Name Role Phone Familia Eaton MD Primary Care Provider [phone] Yovanny Flynn MD Unavailable [phone] Martina De La Cruz MD Unavailable [phone] Mariangel Ga NP Unavailable [phone] Encounter Details Date Type Department Care Team (Late st Contact Info) Description 01/04/2025 Results Follow-Up [facility] G[facility] [address] [facility] 12th [place] [address] [place] [address] Isela Murray MD PhD [address] [place] [address] Social History Tobacco Use Types Packs/Day Years Used Date Smoking Tobacco: Never Smokeless Tobacco: Never Alcohol Use Standard Drinks/Week Comments Yes 0 [...] on file Legal Sex Female 4:19 AM BLOCK HANDLER Gender Identity Female 03/26/2019 10:07 AM CDT Sexual Orientation Straight 03/26/2019 10 :07 AM CDT documented as of this encounter Plan of Treatment Not on file documented as of this encounter Visit Diagnoses Not on filedocumented in this encounter Care Teams Dump Worker Relationship Specialty Start Date End Date Familia Eaton MD [address] [place] [address] PCP - General 04/08/17 Yovanny Flynn MD [address] [place] [address] 04/08/17 Martina De La Cruz MD [address] [place] [address] Referring Physician Endocrinology Diabetes & Metabolism 04/18/23 Mariangel Ga NP [address] [place] [address] Nurse Practitioner Nurse Practitioner 04/18/23 documented as of this encounter
--- OUTSIDE RECORDS SUMMARY | 2025-01-14 12:48 | XMS_ITS | Referral Summary ---
Author Organization [facility] Address [address] [place] [address] Care Team Providers Care Claims Investigator Name Role Phone Familia Eaton MD Primary Care Provider [phone] Yovanny Flynn MD Unavailable [phone] Martina De La Cruz MD Unavailable [phone] Mariangel Ga NP Unavailable Encounters Date Type Department Care Team Description 5 Results Follow-Up [facility] Gastroenterology [facility] 12th [place] [address] [place] [address] Isela Murray MD PhD 5 Orders Only [facility] Gastroenterology [address] [facility] [address]th [place] [address] [place] [address] Isela Murray MD PhD Atrophic gastritis without hemorrhage (Primary Dx) 5 Results Follow-Up [facility] Gastroenterology [facility] 12th [place] [address] [place] [address] Isela Murray MD PhD 5 10:24 AM CREW LEADER/CONTROL ROOM OPERATOR Anesthesia Event [facility] Dig[facility] [place] [id number] [address] Rodrigo Mauricio MD Zueck, Jason M., CARISA 5 10:00 AM CREW LEADER/CONTROL ROOM OPERATOR - 5 10:30 AM [facility] Surgery [facility] [address] [address] Isela Murray MD PhD ESOPHAGOGASTRODUODENOSCOPY BIOPSY 5 9:01 AM CREW LEADER/CONTROL ROOM OPERATOR - 5 11:45 AM CREW LEADER/CONTROL ROOM OPERATOR Hospital Encounter [facility] [address] [address] Isela Murray MD PhD Atrophic gastritis without hemorrhage Discharge Disposition: Discharge to home or self care 5 Telephone [facility] [address] [place] [phone] Letitia Holder RN GI PROCEDURE 3 DAY PRE CALL 5 Telephone [facility] [address] [place] [phone] Letitia Holder RN GI PROCEDURE 7 DAY PRE CALL 5 10:20 AM CREW LEADER/CONTROL ROOM OPERATOR Office Visit [facility] Endocrinology Metabolism and Lipid [address] [place] [address] 13th Floor [address] [place] [phone] Maryann Malagon MD Type 1 diabetes mellitus without complication (HCC) (Primary Dx); Insulin pump in place; Vitamin B 12 deficiency; Thyroiditis, autoimmune 5 Orders Only [facility] Endocrinology Metabolism and Lipid [address] [place] [address] 13th [place] [address] Will Gleason RN Type 1 diabetes mellitus without complication (HCC) (Primary Dx) from Last 3 Months Allergies No known active allergies Medications cyanocobalamin/f olic acid (VITAMIN K72-JVOPT ACID) 500-400 mcg tabletIndication s:Vitamin B 12 [...] 24 Active blood-glucose sensor device Use with Dexcom G6 system to [...] (02/05/2021): Added automatically from request for surgery [id number] Assessment & Plan (02/05/2021 7:13 PM CDT): [...] dosing. Assessment & Plan (09/04/2019 9:07 AM CREW LEADER/CONTROL ROOM OPERATOR): The patient has a low normal B12 level and was started on B12 supplementation. Will repeat labs for intrinsic factor, gastrin, and parietal cell antibodies for further evaluation. technical support assistant associated with adverse incidents 04/14/2018 Overview (04/20/2023): [...] and store in a safe place. The supervisor core drilling may need to be contacted to obtain [...] labs. Assessment & Plan (09/04/2019 9:06 AM CREW LEADER/CONTROL ROOM OPERATOR): The patient has type 1 diabetes, currently [...] was 7.6%. She will be seeing the museum educator today. Recommend she continue the same insulin pump settings at this time. 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 She will follow-up with Dr. Wallis or myself over and will call sooner with any concerns. Assessment & Plan (03/27/2018 2:09 PM CDT): She has had some difficulties with the sensor from [employer] not seeing her pump at night. The [...] observation Assessment & Plan (09/04/2019 9:05 AM CREW LEADER/CONTROL ROOM OPERATOR): The patient has had abnormal thyroid function tests consistent with thyroiditis, and positive TPO. She appears clinically euthyroid. Will repeat free T4, TSH for further evaluation. Assessment & Plan (03/29/2019 12:41 PM CDT): Labs in September 2018 revealed a TSH that was suppressed in -. Repeat labs in October 2018 showed a [...] (03/13/2020): Added automatically from request for surgery [id number] Assessment & Plan (02/05/2021 7:13 PM CDT): The patient complains of fatigue. Her B12 is robust but she was iron deficient. We will recheck her levels of iron and if still low would recommend that she try ferrous gluconate. She can increase her MiraLax to compensate for any constipation caused by this. Social History Tobacco Use Types Packs/Day Years [...] on file Legal Sex Female 4:19 AM CREW LEADER/CONTROL ROOM OPERATOR Gender Identity Female 03/26/2019 10:07 AM CDT Sexual Orientation Straight 03/26/2019 10 :07 AM CDT Last Filed Vital Signs Vital Sign Reading Time Taken Comments Blood Pressure 110/73 12/11/2024 11:26 AM CREW LEADER/CONTROL ROOM OPERATOR Pulse 55 12/11/2024 11:26 AM CREW LEADER/CONTROL ROOM OPERATOR Temperature 36 C (96.8 F) 12/11/2024 10:56 AM CREW LEADER/CONTROL ROOM OPERATOR Respiratory Rate 21 12/11/2024 11:26 AM CREW LEADER/CONTROL ROOM OPERATOR Oxygen Saturation 100% 12/11/2024 11:26 AM CREW LEADER/CONTROL ROOM OPERATOR Inhaled Oxygen Concentration - - Weight 67.1 kg (148 lb) 12/11/2024 10:10 AM CREW LEADER/CONTROL ROOM OPERATOR Height 162.6 cm (5' 4 ) 12/11/2024 10:10 AM CREW LEADER/CONTROL ROOM OPERATOR Body Mass Index 25.4 12/11/2024 10:10 AM CREW LEADER/CONTROL ROOM OPERATOR Plan of Treatment Not on file Procedures Procedure Name Priority Date/Time Associated Diagnosis Comments PARIETAL CELL AB$W/REFL TITER Routine 9:36 AM CDT Atrophic gastritis without hemorrhage SURGICAL PATHOLOGY Routine 12/11/2024 10:40 AM CREW LEADER/CONTROL ROOM OPERATOR Atrophic gastritis without hemorrhage EGD 12/11/2024 10:29 AM CREW LEADER/CONTROL ROOM OPERATOR ESOPHAGOGASTRODUODENOSCOPY BIOPSY 12/11/2024 10:24 AM CREW LEADER/CONTROL ROOM OPERATOR Atrophic gastritis without hemorrhage POCT GLUCOSE DEVICE Routine 12/11/2024 10:21 AM CREW LEADER/CONTROL ROOM OPERATOR POCT HCG, URINE Routine 12/11/2024 10:08 AM CREW LEADER/CONTROL ROOM OPERATOR HEMOGLOBIN A1C Routine 11/22/2024 12:38 PM CREW LEADER/CONTROL ROOM OPERATOR Type 1 diabetes mellitus without complication (HCC) [...] cell ab screen NEGATIVE NEGATIVE [facility] Blood 12/31/2024 9:36 AM CDT 12/31/2024 9:36 AM CDT Narrative [facility] - 01/03/2025 11:16 AM CDT FASTING:NO FASTING: NO Isela Murray MD PhD LAB BLOOD ORDERABLES May l Result Performing Organization Address City/State/[facility] Co de Phone Number [facility] [address] [place] [address] * Surgical pathology (12/11/2024 10:40 AM CREW LEADER/CONTROL ROOM OPERATOR) Tissue specimen (specimen) (Gastric/Stomach biopsy) 12/11/2024 10:40 AM CREW LEADER/CONTROL ROOM OPERATOR Tissue specimen (specimen) (Polyp(s), colon/colorectal, esophageal, gastric) 12/11/2024 10:43 AM CREW LEADER/CONTROL ROOM OPERATOR Tissue specimen (specimen) (Gastric/Stomach biopsy) 12/11/2024 10:45 AM CREW LEADER/CONTROL ROOM OPERATOR Narrative PATHOLOGY [facility] - 12/13/2024 5:53 PM CREW LEADER/CONTROL ROOM OPERATOR EPIC results best viewed via link to PDF [facility] [place] [address] Note to Patients: This report may contain [...] Gender: F : 1995 (Age: 29) Address: [address] [place], [place] [phone] Hospital #: [id number] Taken:12/11/2024 Received:12/11/2024 Reported: 12/13/2024 Patient Type: [facility] Service: Gastro Location: Physician(s): Christal Mckinney MD [...] Helicobacter pylori immunostain is negative. [facility]/12/12/2024 11:08 By this signature, I attest that [...] Surgical Pathology and Flow Cytometry Departments at [facility] as part of an ongoing quality cloth tester program and in compliance with federally mandated [...] Surgical Pathology and Flow Cytometry Departments of [facility]. It has not been cleared or approved by the U. S. Food and Drug Administration. IMAGES AND SCANNED DOCUMENTS, IF INCLUDED, ONLY VIEWABLE IN PDF VERSION OF REPORT Isela Murray MD PhD LAB PATHOLOGY ORDERABLES Final Result PATHOLOGY [facility] 3rd Floor [place] [phone] * EGD (12/11/2024 10:29 AM CREW LEADER/CONTROL ROOM OPERATOR) Anatomical Region Laterality Modality Other Narrative Procedure Note Isela Murray MD PhD - 12/11/2024 10:29 AM CST [facility] ENDOSCOPY [facility] Patient Name: Ciara Painter Procedure Date: 12/11/2024 10:29 AM Date of : 1995 Admit Type: Outpatient Age: 29 Gender: Female Attending MD: Isela Murray MD,PHD Room: [facility] ENDOSCOPY ROOM 3 Note Status: Finalized Procedure: [...] passed under direct vision. The GIF [id number] endoscope was introducedthrough the mouth, and advanced [...] Result * POCT glucose (12/11/2024 10:21 AM CREW LEADER/CONTROL ROOM OPERATOR) Glucose, POC 124 70 - 199 mg/dL Blood 12/11/2024 10:2 1 AM CREW LEADER/CONTROL ROOM OPERATOR 12/11/2024 10:21 AM CREW LEADER/CONTROL ROOM OPERATOR Isela Murray MD PhD LAB POCT ORDERABLES - DEV ICE Final Result [facility] One [facility] Department [place] [address] * POCT hCG, urine (12/11/2024 10:08 AM CREW LEADER/CONTROL ROOM OPERATOR) HCG, ur, POC Negative Negative Lot Number \[id number]\ QC Backgroud Clear Acceptable QC Control Line Acceptable Urine 12/11/2024 10:0 8 AM CREW LEADER/CONTROL ROOM OPERATOR us Isela Murray MD PhD POINT OF CARE TEST ORDERA BLES Final Result * (ABNORMAL) Hemoglobin A1c (11/22/2024 12:38 PM CREW LEADER/CONTROL ROOM OPERATOR) Pathologist [facility] Hgb A1C 6.7(H) <5.7 % of total Hgb [facility]ty Christ[facility] Comment: For someone without [...] for children. Blood 11/22/2024 12:3 8 PM CREW LEADER/CONTROL ROOM OPERATOR 11/22/2024 12:38 PM CREW LEADER/CONTROL ROOM OPERATOR Narrative [facility] - 11/22/2024 10:19 PM CREW LEADER/CONTROL ROOM OPERATOR FASTING:NO FASTING: NO us Maryann Malagon MD LAB BLOOD ORDERABLES Final Result [facility] [address] [place] [address] * Thyroid Function [place] (05/14/2024 7:26 AM CDT) Pathologist [facility] TSH 4.28 mIU/L [facility] Comment: Reference Range > or = 20 Years 0.40-4.50 Ranges First trimester 0.26-2.66 Second trimester 0.55-2.73 Third trimester 0.43-2.91 Blood 05/14/2024 7:26 AM CDT 05/14/2024 7:26 AM CDT Narrative [facility] - 05/16/2024 1:31 AM CDT FASTING:YES FASTING: YES Maryann Malagon MD LAB BLOOD ORDERABLES Final Result Performing Organization Address City/[facility] Co de Phone Number [facility] [address] [place] [address] * Albumin Creatinine Ratio, Urine (05/14/2024 7:26 AM CDT) Creatinine, ur 81 20 - 275 mg/dL [...] LAB URINE ORDERABLES Final Result [facility] [place] [facility] [address] [facility] [place] [address] * Lipid panel (05/14/2024 7:26 AM CDT) [...] LDL-C. Madhu SS et al. REINA. 2013;310(19): 1344-1244 (http://education.Metabar/faq/UUC767) Chol/HDL ratio 2.0 <5.0 (calc) [facility] [...] MD LAB BLOOD ORDERABLES Final Result [facility] [address] [place] [address] * (ABNORMAL) Comprehensive metabolic panel (05/14/2024 7:26 AM CDT) Pathologist [facility] Glucose 112(H) 65 - 99 mg/dL [facility] [...] LAB BLOOD ORDERABLES Final Result [facility] [address] [address] [phone] from Last 3 Months or Most Recently Relevant to Health Maintenance Insurance [facility] PPO [facility] ACCESS CHOICE [facility] Advance Directives For more information, please contact: [phone] * Full Code (Latest Code Status on File) Date Activated Date Inactivated Comments 03/29/2022 7:51 AM 03/29/2022 1:59 PM * Full Code Date Activated Date Inactivated Comments 03/24/2020 7:04 AM 03/24/2020 1:22 PM Care Teams Claims Investigator Relationship Specialty Start Date End Date Familia Eaton MD [address] [place] [address] PCP - General 04/08/17 Yovanny Flynn MD [address] [place] [address] 04/08/17 Martina De La Cruz MD [address] [place] [address] Referring Physician Endocrinology Diabetes & Metabolism 04/18/23 Mariangel Ga NP [address] [place] [address] Nurse Practitioner Nurse Practitioner 04/18/23
--- OUTSIDE RECORDS SUMMARY | 2025-01-14 12:48 | XMS_ITS | Encounter Summary ---
Author Organization [facility] Address [address] [facility] [place] [address] Care Team Providers Care House Mover Helper Name Role Phone Jamey العراقي MD Primary Care Provider [phone] Familia Eaton MD Unavailable Reason for Visit * Reason Onset Date Comments Insulin Pump Start 01/07/2016 Encounter Details Date Type Department Care Team (Late st Contact Info) Description 01/07/2016 Telephone [facility] Pediatrics - Endocrinology [address] [place] [address] Raul Polanco APRN-ITALO [address] [place] [address] Insulin Pump Start Social History Tobacco Use Types Packs/Day Years Used Date Smoking Tobacco: Never Alcohol Use Standard Drinks/Week Comments No 0 (1 standard drink = 0.6 oz pur e alcohol) Sex and Gender Information Value Date Recorded Sex Assigned at Not on file Gender Identity Not on file Sexual Orientation Not on file documented as of this encounter Miscellaneous Notes * Telephone Encounter - Sherrie Bhatt APRN-COMMUNITY ENGAGEMENT MANAGER - 01/23/2016 10:04 AM CDT Spoke wit father reviewed blood sugars, see Doc Flow sheet Discussed use of temp basal and suggested using this feature and lowering the basal by 50% on soccer nights Also discussed use of the combination bolus feature and use when eating higher fat foods,s luca has pizza * Telephone Encounter - Sherrie Bhatt APRN-CNP - 01/19/2016 9:57 AM CDT Spoke with father, reviewed blood sugars, see Doc Flow sheet. Plan: Decrease boluses to 1:10 * Telephone Encounter - Sherrie Bhatt APRN-CNP - 01/16/2016 10:00 AM CDT Spoke with father, reviewed blood sugars, see Doc Flow sheet. Due to several lows during the day over past 2 days, will decrease basal to 0.65 from 6 AM until 10PM and reduce boluses to 1:9 * Telephone Encounter - Sherrie Bhatt APRN-CNP - 01/14/2016 9:16 AM CDT Spoke with father, reviewed blood sugars, see Doc Flow sheet Kenna is playing soccer and disconnecting her pump for 2+ hours while playing. Plan: No changes in pump setting. Eat a protein with breakfast * Telephone Encounter - Sherrie Bhatt APRN-CNP - 01/12/2016 10:11 AM CDT Spoke with father, reviewed blood sugars,s see Doc Flow sheet. Kenna has had multiple low blood sugars, 40's - 60's since last 01/09/16. Plan: Decrease basal, 12 AM 0.80, 7 AM 0.70 and 10 PM 0.80 Decrease boluses, make all boluses 1:8 Call back in 2 days, unless concerns, then call tomorrow * Telephone Encounter - Raul Polanco APRN-CNP - 01/09/2016 10:53 AM CDT Returned Father's call regarding blood sugar review. No changes Call tuesday * Telephone Encounter - Raul Polanco APRN-CNP - 01/08/2016 8:47 AM CDT Returned Father's call regarding blood sugar review. Decrease breakfast and lunch to 1:8 if low after both again today Call tomorrow * Telephone Encounter - Raul Polanco APRN-CNP - 01/07/2016 9:26 AM CDT Returned Father's call regarding blood sugar review. No changes At 30gram carb for 97 bg at bedtime which led to 0000 high Call tomorrow and limit bedtime carb intake to treat BG's less than 100 but higher than 80 documented in this encounter Plan of Treatment Not on file documented as of this encounter Visit Diagnoses Not on filedocumented in this encounter Care Teams House Mover Helper Relationship Specialty Start Date End Date Jamey العراقي MD [address] [place] [address] PCP - General Pediatric Endocrinology 11/27/12 Familia Eaton MD [address] [place] [address] Family Medicine Physician Family Medicine 12/03/13 documented as of this encounter
--- OUTSIDE RECORDS SUMMARY | 2025-01-14 12:48 | XMS_ITS | Encounter Summary ---
Author Organization [facility] Address [address] [place] [address] Phone Care Team Providers Care Crm Coordinator Name Role Phone Familia Eaton MD Primary Care Provider [phone] Yovanny Flynn MD Unavailable [phone] Martina De La Cruz MD Unavailable Mariangel Ga NP Unavailable [phone] Encounter Details Date Type Department Care Team (Late st Contact Info) Description 05/21/2024 Documentation [facility] Endocrinology Metabolism and Lipid [address] [facility] 13th [place] [address] [place] [address] Moni Coffman CMA Social History Tobacco Use Types Packs/Day Years [...] of Binge Drinking Not on file 03/11 Comments No Sex and Gender Information Value Date Recorded Sex Assigned at Not on file Legal Sex Female 4:19 AM SPORTS MANAGEMENT INTERN Gender Identity Female 03/26/2019 10:07 AM CDT Sexual Orientation Straight 03/26/2019 10 :07 AM CDT documented as of this encounter Plan of Treatment Not on file documented as of this encounter Visit Diagnoses Not on filedocumented in this encounter Care Teams Crm Coordinator Relationship Specialty Start Date End Date Familia Eaton MD [address] [place] [address] PCP - General 04/08/17 Yovanny Flynn MD [address] [place] [address] 04/08/17 Martina De La Cruz MD [address] [place] [address] Referring Physician Endocrinology Diabetes & Metabolism 04/18/23 Mariangel Ga NP [address] [place] [address] Nurse Practitioner Nurse Practitioner 04/18/23 documented as of this encounter
--- OUTSIDE RECORDS SUMMARY | 2025-01-14 12:48 | XMS_ITS | Encounter Summary ---
Author Organization [facility] Address [address] [facility] [place] [address] Care Team Providers Care Financial Internship Name Role Phone Jamey العراقي MD Primary Care Provider [phone] Familia Eaton MD Unavailable Reason for Visit * Reason Onset Date Comments MEDICATION REFILL 02/26/2014 Encounter Details Date Type Department Care Team (Late st Contact Info) Description 02/26/2014 Refill [facility] Pediatrics - Diabetes Mgmt [address] [place] [address] Jamey العراقي MD [address] [place] [address] [phone] MEDICATION REFILL Social History Tobacco Use Types Packs/Day Years Used Date Smoking Tobacco: Never Alcohol Use Standard Drinks/Week Comments Not Asked 0 (1 standard drink = 0.6 oz pur e alcohol) Sex and Gender Information Value Date Recorded Sex Assigned at Not on file Gender Identity Not on file Sexual Orientation Not on file documented as of this encounter Plan of Treatment Not on file documented as of this encounter Visit Diagnoses Diagnosis Diabetes mellitus type 1 (HCC)- Primary Type I (juvenile type) diabetes mellitus without mention of complication, not stated as uncontrolled documented in this encounter Care Teams Financial Internship Relationship Specialty Start Date End Date Jamey العراقي MD [address] [place] [address] PCP - General Pediatric Endocrinology 11/27/12 Familia Eaton MD [address] [place] [address] Family Medicine Physician Family Medicine 12/03/13 documented as of this encounter
--- OUTSIDE RECORDS SUMMARY | 2025-01-14 12:48 | XMS_ITS | Encounter Summary ---
Author Organization [facility] Address [address] [facility] [place] [address] Care Team Providers Care Quality Coordinator Name Role Phone Jamey العراقي MD Primary Care Provider [phone] Familia Eaton MD Unavailable Encounter Details Date Type Department Care Team (Late st Contact Info) Description 01/06/2016 Telephone [facility] Pediatrics - Diabetes Mgmt [address] [place] [address] Jamey العراقي MD [address] [place] [address] [phone] Social History Tobacco Use Types Packs/Day Years Used Date Smoking Tobacco: Never Alcohol Use Standard Drinks/Week Comments No 0 (1 standard drink = 0.6 oz pur e alcohol) Sex and Gender Information Value Date Recorded Sex Assigned at Not on file Gender Identity Not on file Sexual Orientation Not on file documented as of this encounter Miscellaneous Notes * Telephone Encounter - Rod Brooks RN - 01/06/2016 9:02 AM CDT Kenna Painter and her parents were present for insulin pump start. Kenna Painter and her parents were instructed on the Jasper Ping insulin pump by Vaishali Hines. I reviewed the [facility] insulin pump contract, pump failure guidelines, and DKA prevention checklist with Kenna Painter and her parents. Kenna Painter and her parents were instructed to call daily to review blood sugars with one of our nurse practitioners. Kenna Painter has a insulin pump start follow up appointment scheduled for 03/01/16 at 1:40pm with Dr العراقي. Insulin Pump Brand:Jasper Ping Type of insulin used: NovoLog/Humalog Basal rates: 0.875 units/hour; temporary basal rate of 0.0 units/hour until 24 hours after last Lantus/Levemir dose Bolus settings: 1:6 Sensitivity: 40 Active Insulin:3 hours Target blood glucose: 100- day 120- night documented in this encounter Plan of Treatment Not on file documented as of this encounter Visit Diagnoses Not on filedocumented in this encounter Care Teams Quality Coordinator Relationship Specialty Start Date End Date Jamey العراقي MD [address] [place] [address] PCP - General Pediatric Endocrinology 11/27/12 Familia Eaton MD [address] [place] [phone] Family Medicine Physician Family Medicine 12/03/13 documented as of this encounter
--- OUTSIDE RECORDS SUMMARY | 2025-01-14 12:48 | XMS_ITS | Encounter Summary ---
Author Organization [facility] Address [address] [facility] [place] [address] Care Team Providers Care Rate Examiner Name Role Phone Jamey العراقي MD Primary Care Provider [phone] Familia Eaton MD Unavailable Reason for Visit * Reason Onset Date Comments MEDICATION REFILL 01/29/2016 Encounter Details Date Type Department Care Team (Late st Contact Info) Description 01/29/2016 Refill [facility] Pediatrics - Diabetes Mgmt [address] [place] [address] Jamey العراقي MD [address] [place] [address] [phone] MEDICATION REFILL Social History Tobacco Use Types [...] on filedocumented in this encounter Care Teams Rate Examiner Relationship Specialty Start Date End Date Jamye العراقي MD [address] [place] [phone] PCP - General Pediatric Endocrinology 11/27/12 Familia Eatno MD [address] [place] [phone] Family Medicine Physician Family Medicine 12/03/13 documented as of this encounter
--- OUTSIDE RECORDS SUMMARY | 2025-01-14 12:48 | XMS_ITS | Encounter Summary ---
Author Organization [facility] Address [address] [facility] [place] [address] Care Team Providers Care Director Trial Name Role Phone Jamey العراقي MD Primary Care Provider [phone] Familia Eaton MD Unavailable Reason for Visit * Reason Onset Date Comments General 12/30/2015 Encounter Details Date Type Department Care Team (Late st Contact Info) Description 12/30/2015 Telephone [facility] Pediatrics - Diabetes Mgmt [address] [place] [address] Jamey العراقي MD [address] [place] [address] General Social History Tobacco Use Types Packs/Day Years [...] Telephone Encounter - Rod Brooks RN - 12/30/2015 9:09 AM CDT I returned call to Kenna's father from 12/26/15, he left message that they have received Kenna'sinsulin pump. I left him a message that I will contact the [facility] nurse to coordinate a date/time for the start, and to call our office once that is determined so that we can review necessary pre-pump in fo( blood sugars, prescriptions, etc). Awaiting call back. I emailed Hansa Louis with [facility] and requested she call the family. documented in this encounter Plan of Treatment Not on file documented as of this encounter Visit Diagnoses Not on filedocumented in this encounter Care Teams Director Trial Relationship Specialty Start Date End Date Jamey العراقي MD [address] [place] [address] PCP - General Pediatric Endocrinology 11/27/12 Familia Eaton MD [address] [place] [address] Family Medicine Physician Family Medicine 12/03/13 documented as of this encounter
--- OUTSIDE RECORDS SUMMARY | 2025-01-14 12:48 | XMS_ITS | Encounter Summary ---
Author Organization [facility] Address [address] [facility] [place] [address] Care Team Providers Care Community Arts Centre Manager Name Role Phone Jamey العراقي MD Primary Care Provider [phone] Familia Eaton MD Unavailable Reason for Visit * Reason Onset Date Comments MEDICATION REFILL 09/10/2014 Encounter Details Date Type Department Care Team (Late st Contact Info) Description 09/10/2014 Refill [facility] Pediatrics - Diabetes Mgmt [address] [place] [address] Jamey العراقي MD [address] [place] [phone] MEDICATION REFILL Social History Tobacco Use Types [...] Visit Diagnoses Diagnosis Diabetes mellitus type 1 (HCC) Type I (juvenile type) diabetes mellitus without mention of complication, not stated as uncontrolled documented in this encounter Care Teams Community Arts Centre Manager Relationship Specialty Start Date End Date Jamey العراقي MD [address] [place] [address] PCP - General Pediatric Endocrinology 11/27/12 Familia Eaton MD [address] [place] [address] Family Medicine Physician Family Medicine 12/03/13 documented as of this encounter
== END 2025-01-14 11:00 | disposition home or self-care (01) ==
LOC: ANHAUDIO 11:00
PROVIDERS: PCP Internal Medicine; Visit Provider Otolaryngology Otolaryngology/Facial Plastic Surgery
DX: H93.11 Tinnitus, right ear (principal)
CPT/HCPCS: 92557; 92567